=== PATIENT | female | born 1990 | race Caucasian/White ===

== ENCOUNTER → 2019-08-06 15:57 | Outpatient (CLI) | payer OTHER, MEDICAID, SELFPAY ==
[2019-08-07 15:21] LABS: Strep Grp B PCR NEG for Grp B Strep
== END ==
PROVIDERS: Visit Provider Specialist
DX: Z34.83 Encounter for supervision of other normal pregnancy, third trimester (principal); Z3A.36 36 weeks gestation of pregnancy
CPT/HCPCS: 87653

== ENCOUNTER 2019-09-03 18:48 | Outpatient (CLI) | payer OTHER, MEDICAID, SELFPAY | END 2019-09-03 19:41 | disposition home or self-care (01) | LOC: OB 09-04 13:44 | PROVIDERS: Visit Provider Specialist | DX: O36.8130 Decreased fetal movements, third trimester, not applicable or unspecified (principal); Z3A.40 40 weeks gestation of pregnancy | CPT/HCPCS: 59025; G0378; G0379 ==

== ENCOUNTER 2019-09-06 06:54 | Inpatient (IN) | payer OTHER, MEDICAID, SELFPAY ==
[2019-09-06] MEDS: LACTATED RINGERS 1,000 ML 100 ML IV (07:57)
[2019-09-06] MEDS: OXYTOCIN PREMIX 30 UNIT/500 ML PLAST..BAG IV (08:02)
[2019-09-06 08:14] LABS: Add Manual Diff / Slide Review NO; Basophils Absolute Auto 0 /uL (0-100); Basophils Percent Auto 0.4 % (0-2); Eosinophils Absolute Auto 100 /uL (0-450); Eosinophils Percent Auto 0.9 % (2-4); Hematocrit 34.4 % (36-46); Hemoglobin 11.9 g/dL (12.0-16.0); Lymphocytes Absolute Auto 1800 /uL (1100-4500); Lymphocytes Percent Auto 23.3 % (25-40); Mean Corpuscular HGB Conc 34.4 % (30-36); Mean Corpuscular Hemoglobin 30.6 PG (26-34); Mean Corpuscular Volume 88.7 fL (80-100); Monocytes Absolute Auto 400 /uL (0-900); Monocytes Percent Auto 5.3 % (3-14); Neutrophils Absolute Auto 5400 /uL (1500-7000); Neutrophils Percent Auto 70.1 % (50-75); Platelet Count 164 X10^3/uL (150-400); Red Blood Cell Count 3.88 X10^6/uL (4.0-5.2); Red Cell Distribution Width 13.7 % (11.6-14.8); White Blood Cell Count 7.8 X10^3/uL (4.5-11.0)
--- NOTE | 2019-09-06 08:20 | PM.OBHP.1 ---
OB HPI Date/Time Date of admission: 09/06/19 Date Patient Seen: 09/06/19 Time Patient Seen: 08:20 History of Present Condition Chief complaint: NST : 3 Para: 1 Estimated Date of Delivery: 09/01/19 Estimated Gestational Age (weeks): 40 Narrative: Silas Ortega is a 29 year old female admitted for post dates induction Indications Indication for induction OB: post dates History of Present care: good care, initiated at week # (8), number of visits (12) and pounds weight gain (55) Dating criteria: based on 1st trimester US only Ultrasounds: normal mid trimester US Obstetrical complications: none Medical complications: none Preadmission Labs Blood type: A (+) positive -: Antibody screen: negative, GBS status: negative, HBsAG: negative, HIV: negative and RPR/VDLR: negative -: Chlamydia screen: not detected (Initial positive retested after treatment was negative) and Gonorrhea screen: not detected -: Rubella: immune and Varicella: immune HCAB: negative PAP: Normal Quad screen: Normal 1 hr GTT: 113 Prior (ies) History: 08/11/11 38 week 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 Evaluation Evaluation Baseline heart rate: 150 Variability: Moderate (11-25) monitor accelerations: Present monitor decelerations: Episodic Contraction Frequency (minutes): 9 Uterine Contraction Intensity: Mild Category of Tracing: II Cervical dilation (cm): 6 Cervical effacement (%): 80 station: -4 Laboratory results: Laboratory Tests 09/06/19 07:50 WBC 7.8 RBC 3.88 L Hgb 11.9 L Hct 34.4 L MCV 88.7 MCH 30.6 MCHC 34.4 RDW 13.7 Plt Count 164 Neut % (Auto) 70.1 Lymph % (Auto) 23.3 L [place] % (Auto) 5.3 Eos % (Auto) 0.9 L Baso % (Auto) 0.4 Neut # (Auto) 5400 Lymph # (Auto) 1800 [place] # (Auto) 400 Eos # (Auto) 100 Baso # (Auto) 0 PFSH Medical History (Updated 08/29/19 @ 15:15 by Svetlana Estrella MD) depression (Acute ~2010) Meds Home Medications and Allergies Allergies Allergy/AdvReac Type Severity Reaction Status Date / Time shrimp Allergy Severe Throat Verified 09/06/19 08:27 swelling Penicillins Allergy Unknown Verified 09/06/19 08:27 Review of Systems Review of Systems Narrative: Patient denies any headaches, scotoma, epigastric pain. Good movement. No leakage of fluid. No fevers. ROS Unobtainable: All systems reviewed & are unremarkable except as noted in HPI and below Exam Vital Signs (past 8 hours): BP 128/78, P 99 T 97.9 Narrative Exam Narrative: HEENT exam within normal limits. Lungs are clear to auscultation and percussion. Heart is regular rate and rhythm no S3-S4 or murmurs. Abdomen is soft, nontender. Fetus is documented as vertex. Extremities with trace edema and nontender Objective Labs Result Diagrams: 09/06/19 07:50 Labs: Laboratory Results - last 24 hr 09/06/19 07:50 WBC 7.8 RBC 3.88 L Hgb 11.9 L Hct 34.4 L MCV 88.7 MCH 30.6 MCHC 34.4 RDW 13.7 Plt Count 164 Neut % (Auto) 70.1 Lymph % (Auto) 23.3 L [place] % (Auto) 5.3 Eos % (Auto) 0.9 L Baso % (Auto) 0.4 Neut # (Auto) 5400 Lymph # (Auto) 1800 [place] # (Auto) 400 Eos # (Auto) 100 Baso # (Auto) 0 Assessment and Plan Assessment and Plan Assessment and Plan narrative: 40 week gestation with advanced cervical dilation for Pitocin induction.
[2019-09-06 09:35] VITALS: BP 128/78
[2019-09-06] MEDS: OXYTOCIN 10 UNIT/ML VIAL 20 UNIT (18:00)
--- NOTE | 2019-09-06 18:09 | PM.OBPRVD ---
Labor & Delivery Delivery date: 09/06/19 Intrapartal events: None Induction method: per pitocin protocol Delivery monitor: external FHT and external uterine Route of delivery: L&D Laceration Description: None Estimated blood loss (mL): 100 Anesthesia type: None Narrative: Patient arrived on Labor and delivery for Pitocin induction for postdates with advanced cervical dilation. The fetus had intermittent in decelerations but remained with good beat to beat variability. Category 1 to category 2 throughout labor. Patient delivered spontaneously, over an intact perineum. The viable female infant was placed on the maternal abdomen. There was a tight nuchal cord. After the cord stopped pulsating the cord was clamped cut and cord bloods obtained. The placenta delivered spontaneously, intact, with 3 vessels. There were no cervical, vaginal, or perineal tears. Both infant and mother doing well. Baby weighed 8 lb 3 oz [place] Baby 1: Infant gender: Female Presentation: vertex position: Right Occiput Anterior Placenta delivery description: Spontaneous cord vessel description: Nuchal Cord score (1 min): 9 score (5 min): 9
[2019-09-06] MEDS: ACETAMINOPHEN 325 MG TABLET 650 MG PO (21:54)
[2019-09-06] MEDS: IBUPROFEN 600 MG TABLET PO (21:55)
[2019-09-07 07:34] LABS: Hemoglobin 10.6 g/dL (12.0-16.0)
--- NOTE | 2019-09-07 08:20 | PM.OBDS.1 ---
Discharge Providers Provider Date of admission: 09/06/19 06:54 Discharge Date: 09/07/19 Primary care physician: Svetlana Estrella MD Consults: 09/06/19 07:22 Consult to Anesthesiology Urgent Comment: Consulting Provider: Anesthesiologist Reason for consultation: Epidural Has provider been notified: No 09/06/19 20:27 Consult to [employer] Routine Comment: Discharge provider: Svetlana Estrella MD Summary Hospital Course Date Patient Seen: 09/07/19 Time Patient Seen: 08:22 Procedures: Pitocin induction and vaginal delivery Hospital Course: Patient arrived on Labor and delivery for Pitocin induction for postdates and advanced cervical dilation. She had a spontaneous vaginal delivery of a viable female infant weighing 8 lb 3 oz with Apgars of 9 and 9. Both infant and mother are doing well. Patient denies any headaches, scotomata, epigastric pain. She has minimal bleeding. She is urinating and ambulating well. Tolerating regular diet. Peripartum Data Delivery Method: Natural Vaginal Laceration description: None Procedures: Pitocin induction and spontaneous vaginal delivery complications: none 1: Gender: Female Disposition of : home Discharge Diagnosis (1) Vaginal delivery: Start Date: 09/06/19 Status: Acute Status at Discharge Cognitive/behavioral status at discharge: oriented Functional status at discharge: independent ambulation Overall status at discharge: patient is progressing back to baseline Time Spent with Patient Time attestation: Total time spent providing and/or coordinating discharge services: Time spent: Less than 30 minutes Objective Labs Result Diagrams: 09/07/19 07:11 Labs: Laboratory Results - last 24 hr 09/06/19 09/07/19 07:50 07:11 Hgb 10.6 L Hct 30.0 L Blood Type A Positive Antibody Screen Negative Exam Vital Signs (past 8 hours): Blood pressure 141/78, pulse of 86, temperature 98.6? Narrative Exam Narrative: Abdomen is soft, nontender. Uterus is firm, U -1, nontender. Mild lochia. Extremities with trace edema and nontender. Patient is a positive and rubella immune. Discharge Plan Discharge Plan Patient Disposition: Home Discharge Med Rec/Prescriptions Follow up/Referrals: Svetlana Estrella MD [Primary Care Provider] - 1 Month Provider Discharge Instructions Diet: Regular Activity: Nothing in vagina for 4 weeks Skin/Wound/Dressing Care Report to your healthcare provider any signs of infection, such as:: chills, fever and increased pain Discharge Data Primary Care Provider: Svetlana Estrella
[2019-09-07] MEDS: IBUPROFEN 600 MG TABLET PO ×2 (09:28→20:39)
== END 2019-09-07 21:31 | disposition home or self-care (01) | DRG 560 ==
PROVIDERS: Admitting Provider Specialist; PCP Specialist; Visit Provider Specialist
DX: O48.0 Post-term pregnancy (principal); Z3A.40 40 weeks gestation of pregnancy; Z37.0 Single live birth; O69.81X0 Labor and delivery complicated by cord around neck, without compression, not applicable or unspecified
CPT/HCPCS: 36415; 59050; 59409; 85014; 85018; 85025; 86850; 86900; 86901; G0379; J2590